=== PATIENT | female | born 1975 | race American Indian/Alaskan Native ===

== ENCOUNTER 2017-04-27 07:17 | Day surgery (SDC) | payer MEDICAID ==
[~2017-04-27 07:17] MED LIST: ANCEF/STERILE WATER 2 GM/20 ML 2 GM/20 ML SYRINGE IV NR; NACL 0.9% 1000 ML 1,000 ML IV SCH
[2017-04-27] MEDS ORDERED: NACL 0.9% 500 ML 500 ML ONE (07:29)
[2017-04-27] MEDS ORDERED: XYLOCAINE 1%/ EPI 1:100,000 INFILTRATI ONE (07:29)
[2017-04-27] MEDS ORDERED: HEPARIN 10,000 UNITS/10 ML ONE (07:29)
[2017-04-27] MEDS ORDERED: MARCAINE 0.25% INFILTRATI ONE ×3 (07:29→11:24)
[2017-04-27] MEDS ORDERED: SODIUM BICARBONATE ONE (07:29)
[2017-04-27] MEDS ORDERED: PAPAVERINE ONE (07:29)
[2017-04-27] MEDS ORDERED: PEPCID PO NR (08:00)
[2017-04-27] MEDS ORDERED: VERSED IV NR (08:00)
--- NOTE | 2017-04-27 08:29 | Anesthesia Consultation ---
Anesthesia Consult and Med Hx Date of service: 04/27/17 - Airway Anesthetic Teeth Evaluation: Good ROM Head & Neck: Adequate Mental/Hyoid Distance: Adequate Mallampati Class: Class II Intubation Access Assessment: Probably Good - Pulmonary Exam CTA: Yes - Cardiac Exam Cardiac Exam: RRR - Pre-Operative Health Status ASA Pre-Surgery Classification: ASA4 Proposed Anesthetic Plan: General - Pulmonary Hx Smoking: Yes (cigarettes and marijuana) Hx Asthma: Yes SOB: No Hx Sleep Apnea: Yes - Cardiovascular System Hx Hypertension: Yes - Central Nervous System Hx Psychiatric Problems: No - Endocrine Hx End Stage Renal Disease: Yes Hx Hypothyroidism: Yes (thyroidectomy for goiter) - Hematic Hx Anemia: Yes - Other Systems Hx Alcohol Use: No Hx Substance Use: Yes (marijuana daily) Hx Cancer: No Hx Obesity: Yes - Additional Comments Anesthesia Medical History Comments: No previous anesthesia complications. Active smoker for ~30 years, at 1/3 ppd.
--- NOTE | 2017-04-27 08:30 | Anesthesia Day of Surgery ---
Anesthesia Day of Surgery - Day of Surgery Patient Examined: Yes Patient H&P Reviewed: Yes Patient is NPO: Yes Beta Blockers: Yes
[2017-04-27] MEDS ORDERED: NACL BACTERIOSTATIC INFILTRATI ONE (08:38)
[2017-04-27] MEDS ORDERED: LOPRESSOR IV ONE (09:00)
[2017-04-27] MEDS ORDERED: DILAUDID IV PRN (09:22)
[2017-04-27] MEDS ORDERED: NACL 0.9% 1000 ML 1,000 ML IV SCH (10:00)
[2017-04-27] MEDS ORDERED: DIPRIVAN 10 MG/ML IV ONE (10:25)
[2017-04-27] MEDS ORDERED: DILAUDID ONE ×2 (10:25→12:33)
[2017-04-27] MEDS ORDERED: XYLOCAINE MPF 2% ONE (10:26)
[2017-04-27] MEDS ORDERED: ePHEDrine SULFATE ONE (10:41)
[2017-04-27] MEDS ORDERED: BENADRYL ONE (10:47)
[2017-04-27] MEDS ORDERED: NACL 0.9% IR ONE (11:25)
[2017-04-27] MEDS ORDERED: HEPARIN 10,000 UNITS/10 ML 2,000 UNIT in NACL 0.9% 500 ML 500 ML IR ONE (11:25)
--- NOTE | 2017-04-27 12:10 | Operative Report ---
Operative Report Operative Report: Preoperative diagnosis: End-stage renal disease/dialysis dependent renal failure. Postop diagnosis: The same Procedure: Right brachiocephalic arteriovenous fistula creation. Surgeon: Isidro Mcginnis MD., RPVI Rn Disease Management: none Anesthesia: Gen./LMA/local. EBL: 50 mL IV fluids:900 mL Findings: 1. Adequate size right cephalic vein. 2. Adequate set distal brachial artery. 3. Palpable thrill in the vein after the anastomosis. 4. Excellent hemostasis. Disposition: The recovery Indications end-stage renal disease Procedure in details: Patient was brought to the operating room and laid on the operating room table in supine position. After LMA anesthesia was achieved patient right arm was prepped and draped in the usual sterile fashion. The transverse incision below the elbow was made using #11 blade. Subcutaneous tissue was divided with Bovie electrocautery. The right antecubital vein was dissected free. The antecubital vein was disconnected from the distal cephalic vein and controlled was bulldog. It was heparinized with heparinized saline and dilated well. The right brachial artery below the elbow was then dissected and encircled with Vesseloops proximally and distally. Patient received 2500 units of intravenous heparin. After 3 minutes the artery was occluded with vessel clamps and arteriotomy was made using #11 blade and Guillen scissors. The distal end of the vein was spatulated using Guillen scissors. The anastomosis was created using a running 6-0 Prolene running suture using BV1 needle. Prior to completion the artery was flushed proximally and distally and good forward and back bleeding was seen. Then anastomosis was completed the clamps were removed. The hemostasis was excellent. The strong thrill was appreciated over the proximal cephalic vein all way up to the shoulder. Once it was ascertained that hemostasis was good the skin was closed using 3-0 Vicryl and 4-0 monocryl. Patient tolerated procedure well. He was awakened and taken to the recovery room. At the end of the case 1/4 percent Marcaine when infiltrated into the incision for postoperative pain control. All sponge and needle counts were correct.
--- NOTE | 2017-04-27 12:14 | Short Stay Summary ---
Short Stay Documentation Date of service: 04/27/17 - History H&P: obtained from office - Allergies and Medications Current Medications: Allergies ondansetron HCl [From Zofran (as hydrochloride)] Adverse Reaction (Verified 01/03 15:04) hearing loss Home Medications Medication Instructions Recorded Confirmed Last Taken Type ALBUTEROL Inhaler [ProAir HFA 2 puff IH QID PRN 07/30/15 04/27/17 1 Year Ago History Inhaler] Carvedilol [Coreg] 3.125 mg PO BID 07/30/15 04/27/17 04/24/17 History Cinacalcet HCl [Sensipar] 60 mg PO DAILY 07/30/15 04/22/17 04/26/17 History Levothyroxine [Synthroid] 100 mcg PO QAM 07/30/15 04/22/17 04/26/17 History Omeprazole [PriLOSEC] 40 mg PO QDAY 07/30/15 04/22/17 04/26/17 History Simvastatin [Zocor TAB] 40 mg PO QHS 07/30/15 04/22/17 04/26/17 History Ferric Citrate (Nf) [Auryxia (Nf)] 210 mg PO AC 07/09/16 04/22/17 04/26/17 History NovoLOG Mix 70-30 Flexpen 30 units SC DAILY 07/09/16 04/22/17 04/26/17 History Active Medications Cefazolin Sodium (Ancef/Sterile Water 2 Gm/20 Ml) 2 gm in 20 mls @ 80 mls/hr IV PREOP NR PRN Reason: Protocol Stop: 04/27/17 23:59 Sodium Chloride (Nacl 0.9% 1000 Ml) 1,000 mls @ 42 mls/hr IV DIRECT KEIRA Midazolam HCl (Versed) 2 mg IV PREOP NR Stop: 04/27/17 23:59 Last Admin: 04/27/17 09:58 Dose: 2 mg - Brief post op/procedure progress note Procedure: Preoperative diagnosis: End-stage renal disease/dialysis dependent renal failure. Postop diagnosis: The same Procedure: Right brachiocephalic arteriovenous fistula creation. Surgeon: Brandy Mcginnis MD., RPVI Program Evaluation Consultant: none Anesthesia: Gen./LMA/local. EBL: 50 mL IV fluids:900 mL Findings: 1. Adequate size right cephalic vein. 2. Adequate set distal brachial artery. 3. Palpable thrill in the vein after the anastomosis. 4. Excellent hemostasis. Disposition: The recovery - Disposition Condition at discharge: Good Disposition: [id number] TO HOME OR SELFCARE Short Stay Discharge Plan Activity: advance as tolerated, other (no heavy lifting with right arm for 6 weeks) Weight Bearing Status: Full Weight Bearing Diet: renal Wound: open to air Follow up with: NICCI CASTELLANO MD [Primary Care Provider] - 7 Days BRANDY MCGINNIS MD [Staff Physician] - 14 Days Prescriptions: oxyCODONE /ACETAMINOPHEN [Percocet 5/325] 1 - 2 tab PO Q4HR #40 tab
--- NOTE | 2017-04-27 12:22 | Post Anesthesia Evaluation ---
- Post Anesthesia Evaluation Patient Participated: Yes Airway Patent: Yes Stable Respiratory Function: Yes Nausea/Vomiting: No Temp > 96.8F: Yes Pain Manageable: Yes Adequeate Hydration: Yes Anesthesia Complications: No Block Receding Appropriately: Not Applicable Patient on Ventilator: No
[2017-04-27] MEDS ORDERED: PROAIR IH ONE (12:32)
[2017-04-27] MEDS: DILAUDID IV PRN ×2 (12:45→12:46)
[2017-04-27 18:25] VITALS: BP 175/99
== END 2017-04-27 14:25 | disposition home or self-care (01) ==
LOC: OR 07:17
PROVIDERS: ATTEND Surgery Vascular Surgery
DX: I12.0 Hypertensive chronic kidney disease with stage 5 chronic kidney disease or end stage renal disease (principal); N18.6 End stage renal disease; J45.909 Unspecified asthma, uncomplicated; E03.9 Hypothyroidism, unspecified; D64.9 Anemia, unspecified; E78.00 Pure hypercholesterolemia, unspecified; K21.9 Gastro-esophageal reflux disease without esophagitis; F17.210 Nicotine dependence, cigarettes, uncomplicated; F12.90 Cannabis use, unspecified, uncomplicated; E66.9 Obesity, unspecified; Z68.35 Body mass index [BMI] 35.0-35.9, adult; Z98.890 Other specified postprocedural states; Z88.8 Allergy status to other drugs, medicaments and biological substances; Z99.2 Dependence on renal dialysis; Z86.73 Personal history of transient ischemic attack (TIA), and cerebral infarction without residual deficits; Z90.49 Acquired absence of other specified parts of digestive tract; Z79.899 Other long term (current) drug therapy
CPT/HCPCS: 36415; 36821; 82962; 84132; J0690; J1170; J1200; J1644; J2250; J2440; J2704; J7030; J7040

== ENCOUNTER 2018-09-25 18:51 | Inpatient (IN) | payer MEDICAID ==
--- NOTE | 2018-09-25 19:53 | Emergency Department Report ---
HPI - General Chief Complaint: Dyspnea/Respdistress Time Seen by Provider: 09/25/18 19:30 - HPI HPI: 43-year-old female presents to the emergency department via EMS from home with complaint of some shortness of breath, swelling of the lower extremities and generalized fatigue. She admits to missing her last 2 dialysis sessions, Tuesday and today. She also has a past medical history of arthritis, asthma, CHF, diabetes, GERD, hypertension and hypothyroidism. Her food service hotel runner is Dr. Hernandez. She gets dialysis through a right upper extremity fistula. No recent travel or sick contacts at home. She has not taken anything for her sym ptoms prior to arrival. ED Past Medical Hx - Past Medical History Previous Medical History?: Yes Hx Hypertension: Yes Hx Congestive Heart Failure: Yes (resolved) Hx Diabetes: Yes Hx GERD: Yes Hx Renal Disease: Yes (MWF dialysis) Hx Arthritis: Yes (legs) Hx Asthma: Yes Hx HIV: No - Surgical History Past Surgical History?: Yes Hx Cholecystectomy: Yes - Social History Smoking Status: Unknown if ever smoked - Medications Home Medications: Home Medications Medication Instructions Recorded Confirmed Last Taken Type ALBUTEROL Inhaler (OR & NICU) 2 puff IH QID PRN 07/30/15 04/27/17 1 Year Ago History [ProAir HFA Inhaler] ~04/27/16 Carvedilol [Coreg] 3.125 mg PO BID 07/30/15 04/27/17 04/24/17 History Cinacalcet HCl [Sensipar] 60 mg PO DAILY 07/30/15 04/22/17 04/26/17 History Levothyroxine [Synthroid] 100 mcg PO QAM 07/30/15 04/22/17 04/26/17 History Omeprazole [PriLOSEC] 40 mg PO QDAY 07/30/15 04/22/17 04/26/17 History Simvastatin [Zocor TAB] 40 mg PO QHS 07/30/15 04/22/17 04/26/17 History Ferric Citrate (Nf) [Auryxia (Nf)] 210 mg PO AC 07/09/16 04/22/17 04/26/17 History NovoLOG Mix 70-30 Flexpen 30 units SC DAILY 07/09/16 04/22/17 04/26/17 History oxyCODONE /ACETAMINOPHEN [Percocet 1 - 2 tab PO Q4HR #40 tab 04/27/17 Unknown Rx 5/325] ED Review of Systems ROS: Stated complaint: MALAISE Other details as noted in HPI Constitutional: weakness. denies: fever Eyes: denies: eye pain, vision change ENT: denies: ear pain, throat pain Respiratory: shortness of breath. denies: cough Cardiovascular: edema. denies: chest pain Gastrointestinal: denies: nausea, vomiting Genitourinary: denies: dysuria, discharge Musculoskeletal: denies: back pain Skin: denies: rash Neurological: denies: headache, weakness Physical Exam - Physical Exam Vital Signs: Vital Signs 09/25/18 19:22 Temperature 98.4 F Pulse Rate 88 Respiratory 20 Rate Blood Pressure 180/86 O2 Sat by Pulse 93 Oximetry Physical Exam: GENERAL: The patient is well-developed well-nourished. HEENT: Normocephalic. Atraumatic. Patient has moist mucous membranes. EYES: Extraocular motions are intact. Pupils are equal and reactive to light bilaterally. NECK: Supple. Trachea is midline. CHEST/LUNGS: Coarse breath sounds at the chest. No tachypnea or accessory muscle use. There is no respiratory distress noted. HEART/CARDIOVASCULAR: Regular. There is no tachycardia. There is no obvious murmur. ABDOMEN: Abdomen is soft, nontender. Patient has normal bowel sounds. There is no abdominal distention. SKIN: Skin is warm and dry. Patient has pitting edema to the bilateral lower extremities. NEURO: The patient is awake, alert, and oriented. The patient is cooperative. The patient has no focal neurologic deficits. The patient has normal speech. MUSCULOSKELETAL: There is no tenderness or deformity. There is no evidence of acute injury. ED Course Vital Signs 09/25/18 19:22 Temperature 98.4 F Pulse Rate 88 Respiratory 20 Rate Blood Pressure 180/86 O2 Sat by Pulse 93 Oximetry - Consultations Consultation #1: 09/25/18 21:38 I spoke with the food service hotel runner on-call for Dr. Hernandez, Dr Ramirez, who will dialyze the patient this evening. ED Medical Decision Making - Lab Data Result diagrams: 09/25/18 19:43 09/25/18 19:43 - EKG Data -: EKG Interpreted by Ks EKG shows normal: sinus rhythm, axis (left axis deviation), intervals, QRS complexes (LVH), ST-T waves Rate: normal - EKG Data When compared to previous EKG there are: previous EKG unavailable Interpretation: LVH - Radiology Data Radiology results: image reviewed interpreted by me: Chest x-ray shows some pulmonary vascular congestion and some mild fluid in the fissures. There is some cardiomegaly. - Medical Decision Making Patient presents with some fatigue and shortness of breath after missing her 2 last dialysis sessions. Chest x-ray shows some mild volume overload but the patient does not appear to be in any respiratory distress. However she does have hyperkalemia with a potassium of 6.6, along with elevated BUN/creatinine levels. Nephrology has been contacted and the patient will get dialysis this evening. The patient has been accepted for admission by the hospitalist, Dr. Giang. - Differential Diagnosis CHF, Pneumonia, Asthma, COPD Critical Care Time: No Critical care attestation.: If time is entered above; I have spent that time in minutes in the direct care of this critically ill patient, excluding procedure time. ED Disposition Clinical Impression: End-stage renal disease needing dialysis, Hyperkalemia, Hypertensive urgency, Lower extremity edema Disposition: OP ADMIT IP TO THIS HOSP Is pt being admited?: Yes Condition: Fair Time of Disposition: 21:40
[2018-09-25 20:14] LABS: Calcium 9.1 mg/dL (8.4-10.2)
[2018-09-25 20:17] LABS: Basophils # (Auto) 0.1 K/mm3 (0.0-0.1); Basophils % (Auto) 1.1 % (0.0-1.8); Eosinophils # (Auto) 0.2 K/mm3 (0.0-0.4); Eosinophils % (Auto) 3.3 % (0.0-4.3); Hematocrit 34.1 % (30.3-42.9); Hemoglobin 11.4 gm/dl (10.1-14.3); Lymphocytes # (Auto) 1.3 K/mm3 (1.2-5.4); Lymphocytes % (Auto) 17.5 % (13.4-35.0); Mean Corpuscular HGB Conc 33 % (30-34); Mean Corpuscular Volume 103 fl (79-97); Monocytes # (Auto) 0.5 K/mm3 (0.0-0.8); Monocytes % (Auto) 6.5 % (0.0-7.3); Platelet Count 359 K/mm3 (140-440); Red Blood Count 3.32 M/mm3 (3.65-5.03); Red Cell Distribution Width 16.3 % (13.2-15.2)
[2018-09-25] MEDS ORDERED: PROVENTIL IH ONE (20:32)
[2018-09-25] MEDS ORDERED: NACL 0.9% 100 ML IV PRN ×2 (20:38→23:44)
--- NOTE | 2018-09-25 20:38 | XRay Report ---
FINAL REPORT EXAM: XR CHEST 1V AP HISTORY: Shortness of breath TECHNIQUE: Frontal portable view of the chest Comparison: None FINDINGS: There is bilateral hypoinflation. There is pulmonary consolidation in the perihilar regions bilaterally and lung bases bilaterally. There is no evidence of pneumothorax and no definite evidence of pleural effusion. The cardiac silhouette is obscured by elevation of the hemidiaphragms. There is atherosclerotic vascular calcification of the thoracic aorta. The bony structures are unremarkable. Visualization detail of the thoracic spine is limited. IMPRESSION: 1. Hypoinflation with pulmonary consolidation in the perihilar regions bilaterally and lung bases bi laterally. 2. The cardiac silhouette is obscured by the elevation of the hemidiaphragms. CT chest is recommended for further evaluation.
[2018-09-25] MEDS ORDERED: PERCOCET 5/325 PO ONE (21:06)
[2018-09-25 21:10] LABS: Chol/HDL Ratio 4.04 %
[2018-09-25] MEDS ORDERED: CALCIUM GLUCONATE 1,000 MG in NACL 0.9% 100 ML IV ONE (21:32)
[2018-09-25] MEDS ORDERED: TYLENOL PO PRN (22:12)
[2018-09-25] MEDS ORDERED: PROVENTIL IH PRN (22:14)
[2018-09-26 00:31] LABS: Hepatitis B Surface Antigen Non-Reactive (Negative); Hepatitis C Virus Antibody Non-Reactive (NonReactive)
[2018-09-26 03:25] LABS: Calcium 8.5 mg/dL (8.4-10.2)
[2018-09-26 03:26] LABS: Creatine Kinase MB 6.1 ng/mL (0.0-4.0)
[2018-09-26 06:28] LABS: Creatine Kinase MB 6.8 ng/mL (0.0-4.0)
[2018-09-26] MEDS ORDERED: D50W (25GM) Syringe IV PRN (06:45)
[2018-09-26] MEDS ORDERED: PROAIR IH PRN (06:46)
[2018-09-26] MEDS ORDERED: NON-FORMULARY (Ferric Citrate 210 MG) PO SCH (07:30)
[2018-09-26] MEDS ORDERED: HumuLIN R SUB-Q SCH (07:30)
--- NOTE | 2018-09-26 08:12 | Consultation ---
History of Present Illness - Reason for Consult Consult date: 09/26/18 end stage renal disease, hyperkalemia - History of Present Illness The patient is a 43 YO AAF with history significant for DM-2, HTN, Asthma, CHF, GERD, Hypothyroidism, legally blind and ESRD on hemodialysis (MWF) who presented to the emergency department via EMS from home with complaint of some shortness of breath, swelling of the lower extremities and generalized fatigue. She admits to missing the last 2 dialysis sessions due to lack of transportation. Her property valuer is Dr. Hernandez. Patient denies any CP, cough, fever, chills, LORENZ, dizziness, weakness, N, V, D or abd pain. Potassium was 6.6 and CXR suggestive of fluid overload. Nephrology was consulted for further evaluation. She had urgent hemodialysis last night. Her symptoms are better now. Past History Past Medical History: diabetes, dialysis, ESRD, heart failure, hyperlipidemia, other (Hypothyroid, blindness) Medications and Allergies Allergies Allergy/AdvReac Type Severity Reaction Status Date / Time ondansetron HCl AdvReac hearing Verified 04/22/17 15:04 [From Zofran (as loss hydrochloride)] Home Medications Medication Instructions Recorded Confirmed Last Taken Type ALBUTEROL Inhaler (OR & NICU) 2 puff IH QID PRN 07/30/15 04/27/17 1 Year Ago History [ProAir HFA Inhaler] ~04/27/16 Carvedilol [Coreg] 3.125 mg PO BID 07/30/15 04/27/17 04/24/17 History Cinacalcet HCl [Sensipar] 60 mg PO DAILY 07/30/15 04/22/17 04/26/17 History Levothyroxine [Synthroid] 100 mcg PO QAM 07/30/15 04/22/17 04/26/17 History Omeprazole [PriLOSEC] 40 mg PO QDAY 07/30/15 04/22/17 04/26/17 History Simvastatin [Zocor TAB] 40 mg PO QHS 07/30/15 04/22/17 04/26/17 History Ferric Citrate (Nf) [Auryxia (Nf)] 210 mg PO AC 07/09/16 04/22/17 04/26/17 History NovoLOG Mix 70-30 Flexpen 30 units SC DAILY 1004/22/17 04/26/17 History oxyCODONE /ACETAMINOPHEN [Percocet 1 - 2 tab PO Q4HR #40 tab 04/27/17 Unknown Rx 5/325] Active Meds: Active Medications Acetaminophen (Tylenol) 650 mg PO Q4H PRN PRN Reason: Fever >101 Albuterol (Proventil) 2.5 mg IH Q6HRT PRN PRN Reason: Shortness Of Breath Carvedilol (Coreg) 3.125 mg PO BID [facility] Cinacalcet (Sensipar) 60 mg PO QDAY [facility] Dextrose (D50w (25gm) Syringe) 50 ml IV PRN PRN PRN Reason: Hypoglycemia Heparin Sodium (Porcine) (Heparin) 5,000 unit SUB-Q Q12HR [facility] Sodium Chloride (Nacl 0.9%) 100 mls @ 999 mls/hr IV BLANCA PRN PRN Reason: Hypotension Insulin Human Lispro (Humalog) 0 unit SUB-Q AC [facility]; Protocol Levothyroxine Sodium (Synthroid) 100 mcg PO QAM@0600 [facility] Miscellaneous Medication (Ferric Citrate) 210 mg PO AC [facility] Oxycodone/Acetaminophen (Percocet 5/325) 1 tab PO Q4HR [facility] Pantoprazole Sodium (Protonix) 40 mg PO DAILY [facility] Pravastatin Sodium (Pravachol) 80 mg PO QHS [facility] Review of Systems Constitutional: fatigue, no weight loss, no weight gain, no fever, no chills, no anorexia, no weakness Breasts: deferred Cardiovascular: orthopnea, edema, shortness of breath, dyspnea on exertion, high blood pressure, leg edema, decreased exercise tolerance, no chest pain, no palpitations, no syncope, no lightheadedness Respiratory: shortness of breath, dyspnea on exertion, no cough, no home oxygen Gastrointestinal: no abdominal pain, no nausea, no vomiting, no diarrhea, no melena, no hematochezia Rectal: no bleeding Musculoskeletal: no redness of joints, no muscle weakness Integumentary: no rash, no sores, no wounds, no jaundice Neurological: no seizures, no syncope, no convulsions, no aphasia, no change in speech, no change in mentation, no confusion Exam - Vital Signs Vital signs: Vital Signs Pulse Ox 77 L 09/25/18 19:17 - General Appearance General appearance: well-developed, well-nourished, appears stated age, other (not in distress) EENT: ATNC, hearing intact Neck: Present: neck supple, trachea midline Respiratory: Rales (faint, bibasal) Heart: regular, S1S2, no murmurs Gastrointestinal: Present: normoactive bowel sounds. Absent: tenderness, distended Integumentary: no rash, warm and dry Neurologic: no asterixis, alert and oriented x3, other (bilateral blindness) Musculoskeletal: Present: other (no edema, right arm AVF) Results - Lab Results 09/25/18 19:43 09/26/18 02:12 Most recent lab results Calcium 8.5 mg/dL (8.4-10.2) 09/26/18 02:12 Assessment and Plan 1. Hyperkalemia: S/p urgent hemodialysis yesterday. Potassium level is better. Low potassium diet. 2. ESRD: Her regular schedule is MWF. Next HD tomorrow. 3. Volume overload: Improving. UF with HD as tolerated. 4. Elevated Troponin. 5. HTN: BP controlled. 6. DM-2
--- NOTE | 2018-09-26 08:33 | History and Physical Report ---
CHIEF COMPLAINT: Shortness of breath. HISTORY OF PRESENT ILLNESS: The patient is a 43-year-old female with past medical history of end-stage renal disease who missed two dialysis sessions and then presented with shortness of breath. There is no history of chest pain; however, the patient has history of weakness. The patient also denied history of fever or chills and also denies history of cough. There is no history of nausea or vomiting. PAST MEDICAL HISTORY: Pertinent for hypertension, congestive heart failure, diabetes mellitus, gastroesophageal reflux disease, end-stage renal disease, on dialysis on Mondays, Wednesdays, and Fridays; arthritis, asthma. PAST SURGICAL HISTORY: Pertinent for cholecystotomy. FAMILY HISTORY: Family history is noncontributory. SOCIAL HISTORY: The patient does not smoke, does not drink alcohol, and does not use illicit drugs. MEDICATIONS: The patient is on albuterol inhaler 2 pulls inhalation q.i.d., Coreg 3.125 mg by mouth twice daily, Sensipar 60 mg by mouth daily, Synthroid 100 mg by mouth every morning, Prilosec 40 mg by mouth daily, simvastatin 40 mg by mouth at bedtime, ferric citrate 210 mg by mouth before meal, NovoLog 70/30 FlexPen 30 units subcutaneous daily, Percocet 5/325 mg 1-2 tablets by mouth every 4 hours as needed for pain. ALLERGIES: THE PATIENT IS ALLERGIC TO ZOFRAN. REVIEW OF SYSTEMS: CONSTITUTIONAL: There is no fever, no chills, no diaphoresis. HEENT: There is no headache or sore throat. CARDIOVASCULAR SYSTEM: There is no chest pain or orthopnea. RESPIRATORY SYSTEM: Shortness of breath is present. There is no cough. GASTROINTESTINAL SYSTEM: There is no nausea, no vomiting, no abdominal pain, diarrhea, or constipation. NEUROLOGICAL SYSTEM: Generalized weakness noted. MUSCULOSKELETAL SYSTEM: Swelling of the lower extremities noted. No joint pain. DERMATOLOGICAL SYSTEM: There is no skin rash or itching. GENITOURINARY SYSTEM: There is dysuria. There is no hematuria or flank pain. Rest of system review is normal. PHYSICAL EXAMINATION: GENERAL: At the time of exam, the patient was found to be alert and oriented x 3 and not in acute distress. VITAL SIGNS: Shows temperature of 98.4 degrees Fahrenheit, pulse of 88, respirations 20, blood pressure 180/86, O2 sat of 93% on room air. HEENT: Shows pupils to be equal, round, and reactive to light and accommodating Extraocular muscles are intact. NECK: Supple with no JVD or carotid bruit. CARDIOVASCULAR SYSTEM: Showed normal first and second heart sounds with no gallops or murmurs. RESPIRATORY SYSTEM: Show good air entry on both sides of the lung with no abnormal breath sounds. GASTROINTESTINAL SYSTEM: Show abdomen to be full, soft, nontender with no organomegaly or rigidity. NEUROLOGIC: Shows no focal deficits. MUSCULOSKELETAL SYSTEM: Show no joint swelling or tenderness. DERMATOLOGICAL SYSTEM: Show no skin rash. GENITOURINARY SYSTEM: Showing no costovertebral angle tenderness. PERTINENT LABORATORY AND IMAGING STUDIES: The patient had a chest x-ray done that shows hyperinflammation with pulmonary consolidation in the perihilar regions bilateral and lung bases bilaterally and the radiologist said that CT of the chest was recommended for further evaluation. The patient's lab result shows CBC with normal hemoglobin and normal hematocrit with unremarkable CBC differential. The patient's chemistry shows elevated potassium level of 6.6 with normal sodium and low chloride level of 97.4, and elevated BUN of 107 with high creatinine of 12.7 consistent with patient's end-stage renal disease, on dialysis. The patient's blood glucose level is high with a value of 225. Troponin level was high with a value of 0.431. The patient's TSH level came back high with a value of 93.8 and serology test came back unremarkable for hepatitis panel. DIAGNOSES: 1. Volume overload due to end-stage renal disease. 2. Hyperkalemia. 3. Elevated troponin level. PLAN OF ACTION: 1. The patient will be admitted to telemetry. 2. The patient will continue Nephrology consult with Dr. Ramirez and requested by the Emergency Room physician. 3. The patient will be on albuterol nebulizer 2.5 mg q. 6 hours. 4. The patient will have heparin 5000 units subcutaneous q. 12 hours for DVT prophylaxis. 5. The patient will be on Tylenol 650 mg by mouth every 4 hours for fever and headache. Further management of the patient's condition and end-stage renal disease and hyperkalemia will be resolved with the planned dialysis for the night of 09/25/2018 by the Nephrology. 6. The patient will be on Accu-Chek a.c. and at bedtime, followed by low-dose sliding scale using regular insulin coverage 7. The patient will be on consistent carbohydrate 2 g sodium diet. JOB# [id number] OCN/NTS
[2018-09-26] MEDS ORDERED: NON-FORMULARY (Omeprazole [Prilosec] 40 MG) PO SCH (10:00)
[2018-09-26] MEDS ORDERED: PROTONIX PO SCH (10:00)
[2018-09-26] MEDS ORDERED: NON-FORMULARY (Cinacalcet Hcl [Sensipar] 60 MG) PO SCH (10:00)
[2018-09-26] MEDS ORDERED: SENSIPAR PO SCH (10:00)
[2018-09-26] MEDS: SYNTHROID PO SCH (12:02)
[2018-09-26] MEDS: COREG PO SCH ×2 (12:02→21:56)
[2018-09-26] MEDS: HEPARIN SUB-Q SCH ×2 (12:03→21:55)
[2018-09-26] MEDS: PERCOCET 5/325 PO SCH ×4 (12:07→21:52)
[2018-09-26] MEDS: HumaLOG SUB-Q SCH ×2 (13:16→18:13)
[2018-09-26] MEDS ORDERED: NON-FORMULARY (Simvastatin 40 MG) PO SCH (22:00)
[2018-09-26] MEDS ORDERED: PRAVACHOL PO SCH (22:00)
[2018-09-26] MEDS ORDERED: HumaLOG SUB-Q SCH (23:30)
[2018-09-27] MEDS: PERCOCET 5/325 PO SCH ×2 (02:30→05:36)
[2018-09-27] MEDS: SYNTHROID PO SCH (05:36)
[2018-09-27] MEDS ORDERED: NACL 0.9% 100 ML IV PRN (07:26)
--- NOTE | 2018-09-27 09:24 | Progress Note ---
Assessment and Plan 1. Hyperkalemia: S/p urgent hemodialysis 2 days ago. Potassium level better. Low potassium diet. 2. ESRD: Her regular schedule is MWF. Continue HD as planned. 3. Volume overload: Improving. UF with HD as tolerated. 4. Elevated Troponin. 5. HTN: BP controlled. 6. DM-2. Compliance encouraged. Subjective Date of service: 09/27/18 Interval history: Patient was seen and examined while on hemodialysis. Objective - Vital Signs Vital signs: Vital Signs - 12hr 09/26/18 09/27/18 09/27/18 21:56 00:43 06:22 Temperature 98.2 F 97.5 F L Pulse Rate 89 76 70 Respiratory 20 20 Rate Blood Pressure 114/61 111/61 139/66 O2 Sat by Pulse 94 90 Oximetry - General Appearance General appearance: well-developed, well-nourished, appears stated age, other (not in distress) EENT: ATNC, hearing intact Neck: supple Respiratory: Present: Clear to Ascultation Cardiology: regular, S1S2, no murmurs Gastrointestinal: normoactive bowel sounds, no tenderness, no distended Integumentary: no rash, warm and dry Neurologic: no asterixis, alert and oriented x3, other (bilateral diminished vision) Musculoskeletal: other (no edema, right arm AVF) - Lab 09/25/18 19:43 09/26/18 02:12 Most recent lab results Calcium 8.5 mg/dL (8.4-10.2) 09/26/18 02:12 Medications & Allergies - Medications Allergies/Adverse Reactions: Allergies ondansetron HCl [From Zofran (as hydrochloride)] Adverse Reaction (Verified 04/22/17 15:04) hearing loss Home Medications: Home Medications Medication Instructions Recorded Confirmed Last Taken Type ALBUTEROL Inhaler (OR & NICU) 2 puff IH QID PRN 07/30/15 04/27/17 1 Year Ago History [ProAir HFA Inhaler] ~04/27/16 Carvedilol [Coreg] 3.125 mg PO BID 07/30/15 04/27/17 04/24/17 History Cinacalcet HCl [Sensipar] 60 mg PO DAILY 07/30/15 04/22/17 04/26/17 History Levothyroxine [Synthroid] 100 mcg PO QAM 07/30/15 04/22/17 04/26/17 History Omeprazole [PriLOSEC] 40 mg PO QDAY 07/30/15 04/22/17 04/26/17 History Simvastatin [Zocor TAB] 40 mg PO QHS 07/30/15 04/22/17 04/26/17 History Ferric Citrate (Nf) [Auryxia (Nf)] 210 mg PO AC 07/09/16 04/22/17 04/26/17 History oxyCODONE /ACETAMINOPHEN [Percocet 1 - 2 tab PO Q4HR #40 tab 04/27/17 Unknown Rx 5/325 mg] Insulin Glargine [Lantus] 10 unit SUB-Q QHS #1 vial 09/27/18 Unknown Rx Active Medications: Generic Name Dose Route Start Last Admin Trade Name Freq PRN Reason Stop Dose Admin Acetaminophen 650 mg 09/25/18 22:12 Tylenol PO Q4H PRN Fever >101 Albuterol 2.5 mg 09/25/18 22:14 Proventil IH Q6HRT PRN Shortness Of Breath Carvedilol 3.125 mg 09/26/18 10:00 09/26/18 21:56 Coreg PO 3.125 mg BID KEIRA Administration Cinacalcet 60 mg 09/26/18 10:00 09/26/18 12:01 Sensipar PO 60 mg QDAY KEIRA Administration Dextrose 50 ml 09/26/18 06:45 D50w (25gm) Syringe IV PRN PRN Hypoglycemia Heparin Sodium (Porcine) 5,000 unit 09/26/18 10:00 09/26/18 21:55 Heparin SUB-Q 5,000 unit Q12HR KEIRA Administration Sodium Chloride 100 mls @ 999 mls/hr 09/27/18 07:26 Nacl 0.9% IV BLANCA PRN Hypotension Insulin Human Lispro 0 unit 09/26/18 23:30 09/26/18 23:29 Humalog SUB-Q 10 unit ACHS KEIRA Administration Protocol Levothyroxine Sodium 100 mcg 09/26/18 07:00 09/27/18 05:36 Synthroid PO 100 mcg QAM@0600 KEIRA Administration Miscellaneous Medication 210 mg 09/26/18 07:30 Ferric Citrate PO AC KEIRA Oxycodone/Acetaminophen 1 tab 09/26/18 10:00 09/27/18 05:36 Percocet 5/325 PO 1 tab Q4HR KEIRA Administration Pantoprazole Sodium 40 mg 09/26/18 10:00 09/26/18 12:15 Protonix PO 40 mg DAILY KEIRA Administration Pravastatin Sodium 80 mg 09/26/18 22:00 09/26/18 21:53 Pravachol PO 80 mg QHS KEIRA Administration
--- NOTE | 2018-09-27 12:52 | Discharge Summary ---
Providers - Providers Date of Admission: 09/25/18 22:09 Attending physician: HERMAN BARTH MD 09/25/18 20:32 Consult to Physician [CONS] Routine Comment: Consulting Provider: ARABELLA LÓPEZ Physician Instructions: Reason For Exam: Hyperkalemia, Dialysis Primary care physician: [employer] Hospitalization Condition: Fair Hospital course: 43-year-old woman history of end-stage renal disease. She presented after missing 2 dialysis sessions. She presented with shortness of breath and fluid overload and hyperkalemia. She received emergent hemodialysis, after she was hemodialyzed she improved and was subsequently discharged Diagnosis End-stage renal disease missed. x2 Dialysis Hyperkalemia Fluid overload Hypertension GERD Nonadherence with dialysis Disposition: - TO HOME OR SELFCARE Time spent for discharge: 33 minutes Core Measure Documentation - Palliative Care Palliative Care/ Comfort Measures: Not Applicable - Core Measures Any of the following diagnoses?: none Exam - Constitutional Vitals: Temp Pulse Resp BP Pulse Ox 97.2 F L 73 18 127/73 90 09/27/18 09:40 09/27/18 11:30 09/27/18 09:40 09/27/18 11:30 09/27/18 06:22 General appearance: Present: no acute distress, well-nourished - EENT Eyes: Present: PERRL ENT: hearing intact, clear oral mucosa - Neck Neck: Present: supple, normal ROM - Respiratory Respiratory effort: normal Respiratory: bilateral: CTA - Cardiovascular Heart Sounds: Present: S1 & S2. Absent: rub, click - Extremities Extremities: pulses symmetrical, No edema Peripheral Pulses: within normal limits - Abdominal General gastrointestinal: Present: soft, non-tender, non-distended, normal bowel sounds Female genitourinary: Present: normal - Integumentary Integumentary: Present: clear, warm, dry - Musculoskeletal Musculoskeletal: gait normal, strength equal bilaterally - Psychiatric Psychiatric: appropriate mood/affect, intact judgment & insight - Neurologic Neurologic: CNII-XII intact, moves all extremities Plan Follow up with: PRIMARY CARE, [Primary Care Provider] - 3-5 Days Prescriptions: Insulin Glargine [Lantus] 10 unit SUB-Q QHS #1 vial
[2018-09-27 13:46] VITALS: BP 124/63
== END 2018-09-27 16:29 | disposition home or self-care (01) | DRG 640 ==
LOC: ED 18:51 → 3A 22:09
PROVIDERS: ADMIT Internal Medicine; ATTEND Internal Medicine
PROC: 5A1D70Z Performance of Urinary Filtration, Intermittent, Less than 6 Hours Per Day (ICD-10-PCS; principal; 2018-09-25)
PROC: 5A1D70Z Performance of Urinary Filtration, Intermittent, Less than 6 Hours Per Day (ICD-10-PCS; 2018-09-27)
DX: E87.70 Fluid overload, unspecified (principal); N18.6 End stage renal disease; E87.5 Hyperkalemia; I13.2 Hypertensive heart and chronic kidney disease with heart failure and with stage 5 chronic kidney disease, or end stage renal disease; I50.9 Heart failure, unspecified; K21.9 Gastro-esophageal reflux disease without esophagitis; E11.22 Type 2 diabetes mellitus with diabetic chronic kidney disease; J45.909 Unspecified asthma, uncomplicated; H54.8 Legal blindness, as defined in USA; E03.9 Hypothyroidism, unspecified; Z79.899 Other long term (current) drug therapy; I16.0 Hypertensive urgency; Z90.49 Acquired absence of other specified parts of digestive tract
CPT/HCPCS: 36415; 71045; 80048; 80061; 80074; 82550; 82553; 82962; 84443; 84484; 85025; 93005; 93010; 94760; 96374; G0378; A9270-GY; J0610; J1644; J1815